=== PATIENT | male | born 1995 | race Caucasian/White ===

== ENCOUNTER 2025-02-27 13:45 | Emergency (ER) | payer MEDICAID ==
[~2025-02-27] VITALS: Ht 177.8 cm; Wt 85.0 kg
[2025-02-27 13:47] VITALS: BP 146/87; PULSE 56; RESP 18; TEMP 97.9; O2SAT 99
[2025-02-27] MEDS: ONDANSETRON 4MG ODT PO SCH (15:43)
[2025-02-27] MEDS: FAMOTIDINE 20MG TABLET PO ONE (15:43)
== END 2025-02-27 16:17 | disposition left against medical advice (07) ==
LOC: ER 13:45
DX: F11.23 Opioid dependence with withdrawal (principal)
CPT/HCPCS: 99283; Q0162